=== PATIENT | female | born 1990 | race Caucasian/White ===

== ENCOUNTER 2020-03-03 13:27 | Outpatient (REF) | payer OTHER, SELFPAY | END 2020-03-03 13:28 | disposition home or self-care (01) | LOC: HO.LAB 13:27 | PROVIDERS: Visit Provider Internal Medicine | DX: Z20.828 Contact with and (suspected) exposure to other viral communicable diseases (principal) | CPT/HCPCS: C9803; U0003 ==

== ENCOUNTER 2022-09-01 10:16 | Emergency (ER) | payer OTHER, SELFPAY ==
[2022-09-01 10:22] VITALS: BP 113/83; PULSE 78; RESP 20; TEMP 36.1; O2SAT 98; BMI 31.1
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
--- NOTE | 2022-09-01 10:53 | PC.NURSE ---
PT WAS SEEN AND DISCHARGED BY PROVIDER
== END 2022-09-01 10:53 | disposition home or self-care (01) ==
PROVIDERS: Emergency Provider Emergency Medicine
DX: M54.2 Cervicalgia (principal); R51.9 Headache, unspecified
CPT/HCPCS: 99281